=== PATIENT | female | born 1960 | race Caucasian/White ===

== ENCOUNTER → 2023-04-14 | Day surgery (SDC) | payer BC ==
[~2023-04-14] MED LIST: ALPRAZOLAM1 MG PO; ASPIRIN EC81 MG PO; BUPROPION XL150 MG PO; DIOVAN80 MG PO; FLECTOR1 EACH PO; HYDROCODON-ACE1 EAC9 PO; LACTATED RINGER'S 1,000 ML ONE; LIDOCAINE HCL 2% LOCAL INJ 5 ML SDV VIAL INJ ONE; METOPROLOL SUCC25 MG PO; MIDAZOLAM HCL 2 MG/2 ML VIAL ONE; NEURONTIN100 MG PO; NIFEDIPINE ER30 M1 PO; PLAQUENIL200 MG PO; POTASSIUM CHLO10 ME1 PO; PROPOFOL IV EMULSION 10 MG/ML 20 ML VIAL ONE; PROTONIX20 MG PO; TIZANIDINE HCL4 M1 PO; TOPAMAX100 MG PO; VALSARTAN-HCTZ1 EAC4 PO; ZOLPIDEM TARTRAT5 MG PO
[2023-04-14 16:41] VITALS: TEMP 98.6
[2023-04-14 17:10] VITALS: BP 138/90; PULSE 71; RESP 16; O2SAT 98
== END | disposition home or self-care (01) ==
LOC: OR 15:00
PROVIDERS: ATTEND Internal Medicine Gastroenterology
DX: K29.60 Other gastritis without bleeding (principal); K29.50 Unspecified chronic gastritis without bleeding; K44.9 Diaphragmatic hernia without obstruction or gangrene; E73.9 Lactose intolerance, unspecified; B19.20 Unspecified viral hepatitis C without hepatic coma; I20.9 Angina pectoris, unspecified; I12.9 Hypertensive chronic kidney disease with stage 1 through stage 4 chronic kidney disease, or unspecified chronic kidney disease; N18.30 Chronic kidney disease, stage 3 unspecified; M54.2 Cervicalgia; F32.A Depression, unspecified; Z79.82 Long term (current) use of aspirin; Z79.1 Long term (current) use of non-steroidal anti-inflammatories (NSAID); Z79.899 Other long term (current) drug therapy
CPT/HCPCS: 43239; J2001; J2250; J2704; J7121

== ENCOUNTER → 2025-08-11 | Day surgery (SDC) | payer BC ==
[~2025-08-11] MED LIST changes: +AMBIEN10 MG PO; +CLONIDINE HCL0.2 MG PO; +CLONIDINE1 EAC1 PO; +DICYCLOMINE HCL20 MG PO; +HYDRALAZINE HCL25 MG PO; +LEXAPRO10 MG PO; +PROPRANOLOL HCL80 MG PO
[2025-08-11 12:30] VITALS: TEMP 97.5
[2025-08-11 13:00] VITALS: BP 153/78; PULSE 64; RESP 16; O2SAT 99
== END | disposition home or self-care (01) ==
LOC: OR 10:10
PROVIDERS: ATTEND Internal Medicine Gastroenterology
DX: Z12.11 Encounter for screening for malignant neoplasm of colon (principal); K29.70 Gastritis, unspecified, without bleeding; K31.89 Other diseases of stomach and duodenum; K62.89 Other specified diseases of anus and rectum; K44.9 Diaphragmatic hernia without obstruction or gangrene; K57.30 Diverticulosis of large intestine without perforation or abscess without bleeding; K64.8 Other hemorrhoids; I12.9 Hypertensive chronic kidney disease with stage 1 through stage 4 chronic kidney disease, or unspecified chronic kidney disease; N18.30 Chronic kidney disease, stage 3 unspecified; F41.9 Anxiety disorder, unspecified; Z88.8 Allergy status to other drugs, medicaments and biological substances; Z79.82 Long term (current) use of aspirin; Z79.899 Other long term (current) drug therapy; Z86.2 Personal history of diseases of the blood and blood-forming organs and certain disorders involving the immune mechanism; Z86.19 Personal history of other infectious and parasitic diseases
CPT/HCPCS: 43239; 45380; J2003; J2250; J2704; J7121